=== PATIENT | male | born 1995 | race Hispanic/Latino ===

== ENCOUNTER 2018-03-17 16:32 | Emergency (ER) | payer BC ==
[2018-03-17 16:53] VITALS: BP 138/91
[2018-03-17] MEDS ORDERED: ASPIRIN PO ONE (16:53)
== END 2018-03-17 17:20 | disposition left against medical advice (07) ==
LOC: ED 16:32
DX: I48.91 Unspecified atrial fibrillation (principal); Z53.21 Procedure and treatment not carried out due to patient leaving prior to being seen by health care provider
CPT/HCPCS: 93005; 93010